=== PATIENT | female | born 1990 | race Caucasian/White ===

== ENCOUNTER 2017-11-15 13:39 | Emergency (ER) | payer MEDICAID, SELFPAY ==
[2017-11-15 13:44] VITALS: BP 112/75; PULSE 75; RESP 16; TEMP 37.1; O2SAT 99
--- NOTE | 2017-11-15 14:07 | DI.REPORT_ITS ---
SYMPTOMS/DIAGNOSIS: DISTAL RADIAL AND ULNAR PAIN S/P BLUNT TRAUMA LEFT FOREARM: There is no evidence of a fracture or dislocation.
[2017-11-15] MEDS: Acetaminophen 500 MG TAB 1000 MG PO (14:21)
--- NOTE | 2017-11-15 15:04 | ED.GENADUL_ITS ---
Disposition Clinical Impression: Contusion of left wrist Disposition: HOME Condition: Stable Instructions: Contusion in Adults (ED) Additional Instructions: You may apply ice and continue to take [id number] pain medication as needed for discomfort. You may wear the supportive brace for the next 2-3 days and then advance activity as tolerated by discomfort. If not improving over the next couple weeks follow-up with your primary care provider for reassessment. Referrals: Primary Care Provider [Outside] - 2 weeks (As needed for reassessment) Forms: Work Release Medical Decision Making - Radiology Data Radiology results: report reviewed, image reviewed - Medical Decision Making Patient presenting to the emergency department after blunt trauma to her left wrist yesterday. Patient does have some ecchymosis and tenderness to palpation of distal radius and ulna with some reduced movement of the wrist which seems more limited by pain than actual ability as all tendons fire appropriately and patient has no neurovascular or motor changes distal to injury. Plan to perform radiological imaging to rule out acute fracture but given mechanism of injury more suspect significant contusion to the wrist. After review of radiological imaging showing no acute findings patient was discharged with universal wrist splint and encouraged to wear this for the next 3 days and then advance activity as tolerated by discomfort. Patient encouraged to take [id number] pain medication and apply ice. Patient informed to follow-up with primary care provider which she stated is not that local area in the next 2 weeks if she has not had improvement. After discussion of diagnosis and plan of care with patient patient agreed and stated no further needs, questions, or concerns at this time. History of Present Illness - General Chief complaint: Orthopedic Stated complaint: LEFT ARM INJURY Time Seen by Provider: 11/15/17 14:07 Source: patient, RN notes reviewed Mode of arrival: ambulatory Limitations: no limitations - History of Present Illness Initial comments: Patient reports yesterday while carrying some boxes of frozen pizza dough the freezer door shut on her left arm. Since then she has had significant pain and discomfort to her wrist and had reduced range of motion of wrist due to severe pain. Patient denies any other injury or trauma. Onset/Timin -: days(s) Location: left, upper extremity Severity scale (1-10): 5 Quality: aching Consistency: constant Improves with: none Worsens with: movement Associated Symptoms: denies other symptoms Treatments Prior to Arrival: none - Related Data Sertraline [Zoloft] 25 mg PO DAILY 11/15/17 Allergies Allergy/AdvReac Type Severity Reaction Status Date / Time No Known Allergies Allergy Unverified 11/15/17 13:43 Review of Systems Constitutional: no symptoms reported Cardiovascular: denies: syncope Musculoskeletal: as per HPI Comment: All other systems reviewed and negative Past Medical History - Past Medical History Medical history: asthma Surgical history: non-contributory Psychiatric history: depression - Social History Smoking status: never smoker Alcohol use: none Drug use: none General Exam - General Limitations: no limitations General appearance: alert, in no apparent distress - Head Head exam: Present: atraumatic - Eye Eye exam: Present: PERRL. Absent: nystagmus - Respiratory Respiratory exam: Absent: respiratory distress - Cardiovascular Cardiovascular Exam: Present: regular rate, normal rhythm - Expanded Upper Extremity Exam Left Elbow exam: Present: normal inspection, full ROM. Absent: tenderness, pain w/ pronation/supination, tenderness over radial head Forearm Wrist exam: Present: tenderness (To palpation of distal radius and ulna) , swelling (Mild), ecchymosis (Distal radius and ulna). Absent: full ROM ( Decreased flexion and extension of the wrist, mostly limited by pain), abrasion , deformity, tenderness over anatomical snuff box, pain with axial thumb loading Hand Wrist exam: Absent: tenderness, swelling, ecchymosis, deformity, crepidus Neuro motor exam: Present: wrist extension intact, thumb opposition intact, thumb IP flexion intact, thumb adduction intact, fingers 2-5 abduction intact Neurosensory exam: Present: 2-point discrimination, radial nerve intact, ulnar nerve intact, median nerve intact Vascular: Present: normal capillary refill, radial pulse (2+) - Neurological Exam Neurological exam: Present: alert, oriented X3. Absent: altered - Skin Skin exam: Present: warm, dry, intact Course Vital Signs - 24 hr 11/15/17 13:44 Temperature 37.1 C Pulse 75 Respiratory 16 Rate Blood Pressure 112/75 Pulse Oximetry 99
== END 2017-11-15 15:20 | disposition home or self-care (01) ==
PROVIDERS: Emergency Provider Physician Assistant
DX: S60.212A Contusion of left wrist, initial encounter (principal); S67.32XA Crushing injury of left wrist, initial encounter; W23.0XXA Caught, crushed, jammed, or pinched between moving objects, initial encounter; Y99.0 Civilian activity done for income or pay
CPT/HCPCS: 29125; 99283; 73090; L3908